=== PATIENT | female | born 1975 | race Caucasian/White ===

== ENCOUNTER → 2016-09-04 | Outpatient (CLI) | payer OTHER ==
--- NOTE | 2016-09-05 07:55 | MAMMOGRAPHY REPORT ---
BILATERAL DIGITAL SCREENING MAMMOGRAM TOMOSYNTHESIS WITH CAD: 09/04/2016 CLINICAL HISTORY: Routine screening. Patient has no complaints. TECHNIQUE: Breast tomosynthesis in addition to standard 2D mammography was performed. Current study was also evaluated with a Computer Aided Detection (CAD) system. COMPARISON: Comparison is made to exams dated: 08/30/2015 mammogram, 07/21/2014 mammogram, 06/25/2013 m ammogram, 06/18/2012 mammogram, 05/18/2011 mammogram, and 05/12/2010 mammogram - [facility] nter. BREAST COMPOSITION: The tissue of both breasts is heterogeneously dense, which may obscure small ma sses. FINDINGS: There is possible architectural distortion in the lateral far posterior right breast, onl y seen on the CC tomosynthesis images (slice 3133), for which additional spot compression tomosynth esis views in the exaggerated lateral projection, spot compression tomosynthesis MLO views and possi dimitri ultrasound are recommended. No other suspicious mass, architectural distortion or cluster of microcalcifications is seen bilater ally. IMPRESSION: ACR BI-RADS CATEGORY 0: INCOMPLETE EVALUATION: NEED ADDITIONAL IMAGING EVALUATION The possible architectural distortion in the lateral, posterior right breast needs additional evalua tion. The patient will be called to schedule an appointment. Approximately 10% of breast cancers are not detected with mammography. A negative mammographic repor t should not delay biopsy if a clinically suggestive mass is present. Cynthia Ordoñez M.D. ay/:09/04/2016 21:18:10 Inspector Receiving: Lillian Cervantes RT(R)(M), [facility] letter sent: Addl Imaging 0 BI-RADS Code: ACR BI-RADS Category 0: Incomplete Evaluation: Need Additional Imaging Evaluation
== END | disposition home or self-care (01) ==
LOC: C.MAMM 13:59
PROVIDERS: ATTEND Family Medicine
DX: Z12.31 Encounter for screening mammogram for malignant neoplasm of breast (principal); R92.8 Other abnormal and inconclusive findings on diagnostic imaging of breast

== ENCOUNTER → 2016-09-08 | Outpatient (CLI) | payer OTHER ==
--- NOTE | 2016-09-08 15:24 | MAMMOGRAPHY REPORT ---
UNILATERAL RIGHT DIGITAL DIAGNOSTIC MAMMOGRAM TOMOSYNTHESIS: 09/08/2016 CLINICAL HISTORY: Callback from screening mammogram for possible right breast architectural distorti on. TECHNIQUE: Breast tomosynthesis in addition to standard 2D mammography was performed. Spot zachary joy right X CCL 2-D and tomosynthesis images were obtained. COMPARISON: Comparison is made to exams dated: 09/04/2016 mammogram, 08/30/2015 mammogram, 07/21/2014 m ammogram, 07/17/2013 mammogram, 06/25/2013 mammogram, and 06/18/2012 mammogram - [facility] nter. BREAST COMPOSITION: The tissue of the right breast is heterogeneously dense, which may obscure smal l masses. FINDINGS: The previously described possible architectural distortion seen within the right lateral breast on the cc view does not persist on the additional images. This region has the appearance of normal fibroglandular tissue on the tomosynthesis images, without a suspicious mass or other suspici ous findings seen. Findings are benign and compatible with normal fibroglandular tissue. IMPRESSION: ACR BI-RADS CATEGORY 2: BENIGN The questionable right breast architectural distortion does not persist on the additional views. Fi ndings are benign and compatible with normal fibroglandular tissue. There is no mammographic eviden ce of malignancy. A 1 year screening mammogram is recommended. The patient has been verbally notifi ed of the results. Approximately 10% of breast cancers are not detected with mammography. A negative mammographic repor t should not delay biopsy if a clinically suggestive mass is present. Evette Stokes M.D. /:09/08/2016 14:10:03 [employer] Supervisor: Olga Rose, [facility] letter sent: Normal 1/2 BI-RADS Code: ACR BI-RADS Category 2: Benign
== END | disposition home or self-care (01) ==
LOC: C.MAMM 13:43
PROVIDERS: ATTEND Family Medicine
DX: N64.9 Disorder of breast, unspecified (principal)

== ENCOUNTER → 2017-03-26 | Outpatient (CLI) | payer OTHER | END | disposition home or self-care (01) | LOC: C.PAPS 11:23 | PROVIDERS: ATTEND Physician Assistant | DX: Z01.419 Encounter for gynecological examination (general) (routine) without abnormal findings (principal) ==